=== PATIENT | female | born 1985 | race Caucasian/White ===

== ENCOUNTER 2016-05-25 10:05 | Outpatient (CLI) | payer MEDICARE, OTHER ==
[2016-05-25 10:41] LABS: BASOPHILS % 0.6 (0.0-1.5); EOSINOPHILS % 3.2 % (0.0-6.8); LYMPHOCYTES # 1.6 # k/uL (0.6-4.0); MONOCYTES # 0.2 # k/uL (0.0-0.9); NEUTROPHILS # 4.2 # k/uL (1.4-7.7)
== END 2016-05-25 10:06 ==
LOC: LAB 10:05
PROVIDERS: ATTEND Psychiatry & Neurology Psychiatry
DX: Z51.81 Encounter for therapeutic drug level monitoring (principal); Z79.899 Other long term (current) drug therapy; G25.81 Restless legs syndrome; F84.5 Asperger's syndrome
CPT/HCPCS: 36415; 83036; 85025

== ENCOUNTER 2016-07-17 07:18 | Outpatient (CLI) | payer MEDICARE, OTHER ==
--- NOTE | 2016-07-17 08:39 | Diagnostic Imaging Report ---
[facility] [address] [facility] [id number] Report Submission Date: July 17, 2016 8:37:32 AM CDT Patient Study Name: PASTOR DIAZ Date: July 17, 2016 7:44:30 AM CDT Modality Type: MR Gender: F Description: MRI RIGHT KNEE W/O CONTRAST : 89 Institution: [facility] Physician: MARY RAMAN - RICKIE Magnetic resonance imaging of the right knee without contrast History: Pain and unable to bear weight after fall 10 days ago Findings: Multiplanar magnetic resonance imaging of the right knee is performed without contrast revealing obesity and minimal subcutaneous edema anterior to the tibial tubercle and distal patellar tendon. In the patellofemoral compartment, minimal patellar chondromalacia is observed. Trochlear cartilage appears intact. The quadriceps tendon, patellar tendon, and patellar retinacula are intact. Trace joint effusion is observed. The anterior and posterior cruciate ligaments are intact. In the lateral compartment, the lateral meniscus, articular cartilage, and lateral collateral ligament complex are intact. In the medial compartment, the medial meniscus, articular cartilage, and medial collateral ligament are intact. Impression: 1. 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 2. Obesity. 3. Minimal anterior subcutaneous edema. 4. Intact menisci and ligaments. Electronically signed on July 17, 2016 8:37:32 AM CDT by: Dedrick QUAN
== END 2016-07-17 07:23 | disposition home or self-care (01) ==
LOC: RAD 07:18
PROVIDERS: ATTEND Family Medicine
DX: M25.561 Pain in right knee (principal); S80.01XA Contusion of right knee, initial encounter
CPT/HCPCS: 73721